=== PATIENT | female | born 1995 | race Caucasian/White ===

== ENCOUNTER 2019-04-20 14:05 | Emergency (ER) | payer BC ==
[2019-04-20 15:32] LABS: ABS Basophils 0.1 10^3/ul (0-0.2); ABS Eosinophils 0.1 10^3/ul (0-0.6); ABS Lymphocytes 2.2 10^3/ul (1.0-4.8); ABS Monocytes 0.7 10^3/ul (0-0.8); ABS Neutrophils 7.5 10^3/ul (1.5-7.7); Hematocrit 37 % (35-47); Hemoglobin 12.5 g/dL (12.0-16.0); Lymphocyte % 20.8 %; Mean Corpuscular HGB Conc 34 g/dL (31-36); Mean Corpuscular Hemoglobin 27 pg (27-31); Mean Corpuscular Volume 81 fL (80-97); Mean Platelet Volume 6.7 fL (7.4-10.4); Platelet Count 432 10^3/uL (150-450); Red Blood Count 4.61 10^6 /uL (3.70-4.87); Red Cell Distribution Width 14 % (10-15); White Blood Count 10.5 10^3/uL (3.5-10.8)
[2019-04-20 16:05] LABS: Albumin 3.6 g/dL (3.2-5.2); Albumin/Globulin Ratio 0.9 (1-3); BUN/Creatinine Ratio 12.3 (8-20); C Reactive Protein 69.67 mg/L (<8.01); Calcium 8.8 mg/dL (8.6-10.3); EGFR African American 105.1 (>60); EGFR Non-African American 86.9 (>60); Globulin 3.9 g/dL (2-4); Potassium 4.4 mmol/L (3.5-5.0); Total Bilirubin 0.2 mg/dL (0.2-1.0); Total Protein 7.5 g/dL (6.4-8.9)
[2019-04-20] MEDS ORDERED: Ibuprofen TAB* 600 MG PO ONE (18:31)
--- NOTE | 2019-04-20 18:32 | ED ---
Abdominal Pain/Female - HPI Summary HPI Summary: Patient complains of left lower quadrant pain starting yesterday morning. Pain described as new onset, constant, worse with movement. Patient was evaluated UC and sent to the ED for further evaluation. Pelvic exam with swabs at urgent care negative. Denies fever, cough, sore throat, CP, SOB, N/3/D, change in urine, change in BM, vaginal symptoms. Medical history as possible PCO as. LMP 04/08. Patient sexually active with same partner. Abdominal surgical history is none. - History of Current Complaint Chief Complaint: EDAbdPain Stated Complaint: LOWER LEFT ABD PAIN PER PT Time Seen by Provider: 04/20/19 18:08 Hx Obtained From: Patient Onset/Duration: Sudden Onset, Lasting Hours Timing: Constant Severity Initially: Mild Severity Currently: Severe Pain Intensity: 8 Pain Scale Used: 0-10 Numeric Location: Discrete At: LLQ Radiates: No Character: Sharp Aggravating Factor(s): Movement Alleviating Factor(s): Nothing Associated Signs and Symptoms: Positive: Negative Allergies/Adverse Reactions: Allergies Allergy/AdvReac Type Severity Reaction Status Date / Time No Known Allergies Allergy Verified 04/20/19 14:20 Home Medications: Home Medications Etonogest/Eth.estradiol (Nf) [Nuvaring Vaginal Ring] 1 each VAGINAL .SEE COMMENTS 04/20/19 [History Confirmed 04/20/19] PMH/Surg Hx/FS Hx/Imm Hx Endocrine/Hematology History: Denies: Hx Anticoagulant Therapy Cardiovascular History: Denies: Hx Pacemaker/ICD History: Denies: Hx Dialysis Sensory History: Denies: Hx Eye Prosthesis Opthamlomology History: Denies: Hx Legally Blind EENT History: Denies: Hx Deafness Infectious Disease History: No Infectious Disease History: Denies: Traveled Outside the [place] in Last 30 Days - Family History Known Family History: Positive: Non-Contributory - Social History Alcohol Use: Weekly Substance Use Type: Reports: None Smoking Status (MU): Never Smoked Tobacco Review of Systems Constitutional: Negative Eyes: Negative ENT: Negative Cardiovascular: Negative Respiratory: Negative Positive: Abdominal Pain Genitourinary: Negative Musculoskeletal: Negative Skin: Negative Neurological: Negative Psychological: Normal All Other Systems Reviewed And Are Negative: Yes Physical Exam - Summary Physical Exam Summary: Tenderness left lower quadrant. Abdominal exam otherwise unremarkable. Triage Information Reviewed: Yes Vital Signs On Initial Exam: Initial Vitals Temp Pulse Resp BP Pulse Ox 98.1 F 94 16 141/89 100 04/20/19 14:17 04/20/19 14:17 04/20/19 14:17 04/20/19 14:17 04/20/19 14:17 Vital Signs Reviewed: Yes Appearance: Positive: Well-Appearing Skin: Positive: Warm Head/Face: Positive: Normal Head/Face Inspection Eyes: Positive: Normal Neck: Positive: Supple Respiratory/Lung Sounds: Positive: Clear to Auscultation Cardiovascular: Positive: Normal Abdomen Description: Positive: Other: Musculoskeletal: Positive: Normal Neurological: Positive: Normal Psychiatric: Positive: Normal AVPU Assessment: Alert - [place] Coma Scale Best Eye Response: 4 - Spontaneous Best Motor Response: 6 - Obeys Commands Best Verbal Response: 5 - Oriented Coma Scale Total: 15 Procedures - Sedation Patient Received Moderate/Deep Sedation with Procedure: No Diagnostics - Vital Signs Vital Signs Temp Pulse Resp BP Pulse Ox 04/20/19 16:22 98.3 F 93 16 131/85 100 04/20/19 14:17 98.1 F 94 16 141/89 100 - Laboratory Lab Results: Lab Results 04/20/19 04/20/19 04/20/19 Range/Units 15:22 15:22 15:22 WBC 10.5 (3.5-10.8) 10^3/uL RBC 4.61 (3.70-4.87) 10^6 /uL Hgb 12.5 (12.0-16.0) g/dL Hct 37 (35-47) % MCV 81 (80-97) fL MCH 27 (27-31) pg MCHC 34 (31-36) g/dL RDW 14 (10-15) % Plt Count 432 (150-450) 10^3/uL MPV 6.7 L (7.4-10.4) fL Neut % (Auto) 71.5 % Lymph % (Auto) 20.8 % [place] % (Auto) 6.2 % Eos % (Auto) 1.0 % Baso % (Auto) 0.5 % Absolute Neuts (auto) 7.5 (1.5-7.7) 10^3/ul Absolute Lymphs (auto) 2.2 (1.0-4.8) 10^3/ul Absolute Monos (auto) 0.7 (0-0.8) 10^3/ul Absolute Eos (auto) 0.1 (0-0.6) 10^3/ul Absolute Basos (auto) 0.1 (0-0.2) 10^3/ul Absolute Nucleated RBC 0.0 10^3/ul Nucleated RBC % 0.0 Sodium 137 (135-145) mmol/L Potassium 4.4 (3.5-5.0) mmol/L Chloride 106 (101-111) mmol/L Carbon Dioxide 25 (22-32) mmol/L Anion Gap 6 (2-11) mmol/L BUN 10 (6-24) mg/dL Creatinine 0.81 (0.51-0.95) mg/dL Est GFR ( Amer) 105.1 (>60) Est GFR (Non-Af Amer) 86.9 (>60) BUN/Creatinine Ratio 12.3 (8-20) Glucose 91 (70-100) mg/dL Lactic Acid 0.6 (0.5-2.0) mmol/L Calcium 8.8 (8.6-10.3) mg/dL Total Bilirubin 0.20 (0.2-1.0) mg/dL AST 12 L (13-39) U/L ALT 14 (7-52) U/L Alkaline Phosphatase 87 (34-104) U/L C-Reactive Protein 69.67 H (<8.01) mg/L Total Protein 7.5 (6.4-8.9) g/dL Albumin 3.6 (3.2-5.2) g/dL Globulin 3.9 (2-4) g/dL Albumin/Globulin Ratio 0.9 L (1-3) Lipase 10 L (11.0-82.0) U/L Result Diagrams: 04/20/19 15:22 04/20/19 15:22 Lab Statement: Any lab studies that have been ordered have been reviewed, and results considered in the medical decision making process. Abdominal Pain Fem Course/Dx - Course Course Of Treatment: Patient complains of left lower quadrant pain starting yesterday morning. Pain described as new onset, constant, worse with movement. Patient was evaluated UC and sent to the ED for further evaluation. Pelvic exam with swabs at urgent care negative. Denies fever, cough, sore throat, CP, SOB, N/3/D, change in urine, change in BM, vaginal symptoms. Medical history as possible PCO as. LMP 10. Patient sexually active with same partner. Abdominal surgical history is none. Vital signs within normal limits. Labs unremarkable. Transvaginal ultrasound negative. CT abdomen and pelvis positive for epiploic appendigitis versus diverticulitis. Epiploic appendage will self resolve. Rx for Augmentin to cover diverticulitis. Epiploic appendagitis self resolves. Rx for Augmentin to cover diverticulitis. - Diagnoses Provider Diagnoses: Epiploic appendagitis Discharge ED - Sign-Out/Discharge Documenting (check all that apply): Patient Departure - Discharge Plan Condition: Stable Disposition: HOME Prescriptions: Amoxicillin/Clavulanate TAB* [Augmentin TAB 875*] 875 mg PO BID #20 tab Patient Education Materials: Diverticulitis (ED), Acute Abdominal Pain (ED), Diverticulitis Diet (ED) Referrals: Ann John DO [Primary Care Provider] - Additional Instructions: Take antibiotics as directed. Eat soft foods and liquids for 2 days. Alternate ibuprofen 600 mg with Tylenol 650 mg every 3 hours for pain as needed. Return to the ED for any worsening symptoms. - Billing Disposition and Condition Condition: STABLE Disposition: Home - Attestation Statements Provider Attestation: I was available for consult. This patient was seen by the [facility]. The patient was not presented to, seen by, or examined by me. Jarrod Tovar MD
[2019-04-20 18:38] LABS: Urine Appearance Cloudy; Urine Bacteria Absent (Absent); Urine Bilirubin Negative (Negative); Urine Blood 1+ (Negative); Urine Color Yellow; Urine Glucose Negative (Negative); Urine Ketones Negative (Negative); Urine Nitrite Negative (Negative); Urine Protein Negative (Negative); Urine Red Blood Cell Trace(0-2/hpf) (Absent); Urine Specific Gravity 1.026 (1.010-1.030); Urine Squamous Epithelial Cell Present (Absent); Urine Urobilinogen Negative (Negative); Urine White Blood Cell Trace(0-5/hpf) (Absent)
[2019-04-20] MEDS ORDERED: Iohexol 300* (CONTRAST) 10 ML SDV IV ONE (19:56)
[2019-04-20] MEDS ORDERED: Amoxicillin/Clavulanate TAB* 875 MG PO ONE (22:00)
[2019-04-20 22:35] VITALS: BP 0/0
== END 2019-04-20 22:32 | disposition home or self-care (01) ==
LOC: ED 14:05
DX: K63.89 Other specified diseases of intestine (principal)
CPT/HCPCS: 36415; 74177; 76830; 80053; 81003; 81015; 83605; 83690; 85025; 86140; 87086; 99283; A9270-GY; Q9967